=== PATIENT | male | born 1970 | race Caucasian/White ===

== ENCOUNTER → 2020-07-23 | Outpatient (CLI) | payer OTHER ==
[~2020-07-23] MED LIST: LISI-338 PO
== END ==
LOC: LAB 08:30
PROVIDERS: ATTEND Nurse Anesthetist, Certified Registered
DX: Z01.812 Encounter for preprocedural laboratory examination (principal); Z20.828 Contact with and (suspected) exposure to other viral communicable diseases
CPT/HCPCS: U0003

== ENCOUNTER → 2020-07-27 | Day surgery (SDC) | payer OTHER ==
[~2020-07-27] MED LIST changes: +IPRATRPIUM/ALBUTEROL 0.5/2.5MG 3 ML NEBU. NEB PRN; +IV RINGERS SOLUTION,LACTATED 1,000 ML IV SCH; -LISI-338 PO; +LISI-517 PO; +MIDAZOLAM HCL PF 2 MG/2 ML VIAL. IV ONE; +ONDANSETRON PF 4 MG/2 ML VIAL. IV PRN; +PROPOFOL 10,000 MCG/ML (20ML) VIAL IV ONE
[2020-07-27 11:17] VITALS: BP 124/80
--- NOTE | 2020-07-29 13:11 | PATHOLOGY ---
[facility] Accession Number: [id number] . 01 Material submitted: . colon - TRANSVERSE POLYP . 01 Clinical history: . SCREENING COLONOSCOPY . 01 Diagnosis: Transverse polyp biopsy: - Tubular adenoma. There is no evidence of high-grade dysplasia or malignancy. (SHA:august; 07/29/2020) QMS 07/29/2020 1029 Local . 01 Electronically signed: . Rene Stover MD, Pathologist NPI- [id number] . 01 Gross description: . The specimen is received in formalin, labeled "Benedicto Moon, transverse polyp". Received is a segment of pale olivares soft tissue measuring 0.3 cm in maximum dimensions. The specimen is submitted entirely in cassette A1. (CAA; 07/28/2020) QA/QA 07/28/2020 1106 Local . 01 Pathologist provided ICD-10: D12.3 . 01 CPT . 724559 Specimen Comment: A courtesy copy of this report has been sent to [phone] Specimen Comment: Report sent to Performed at: 01 [facility] [address] [place] [address] [address], [place], [place] [id number] MD Rene Stover MD Phone: [phone]
== END | disposition home or self-care (01) ==
LOC: SURG 09:57
PROVIDERS: ATTEND Emergency Medicine
DX: Z12.11 Encounter for screening for malignant neoplasm of colon (principal); K57.30 Diverticulosis of large intestine without perforation or abscess without bleeding; D12.3 Benign neoplasm of transverse colon; K63.89 Other specified diseases of intestine; Z72.89 Other problems related to lifestyle; Z79.899 Other long term (current) drug therapy
CPT/HCPCS: 45380; 88305; J2704; J7120